=== PATIENT | female | born 1965 | race Caucasian/White ===

== ENCOUNTER 2020-11-09 17:42 | Emergency (ER) | payer OTHER, SELFPAY ==
[2020-11-09] VITALS (12 sets, daily range): BP systolic 128–156; BP diastolic 73–91; PULSE 105–129; RESP 21–28; TEMP 37.2; O2SAT 94–97
[2020-11-09 18:15] LABS: Add Manual Diff / Slide Review NO; Basophils Absolute Auto 100 /uL (0-100); Basophils Percent Auto 0.5 % (0-2); Eosinophils Absolute Auto 300 /uL (0-450); Eosinophils Percent Auto 2.1 % (2-4); Hematocrit 41.2 % (36-46); Hemoglobin 13.7 g/dL (12.0-16.0); Lymphocytes Absolute Auto 1600 /uL (1100-4500); Lymphocytes Percent Auto 11.2 % (25-40); Mean Corpuscular HGB Conc 33.2 % (30-36); Mean Corpuscular Hemoglobin 27.1 PG (26-34); Mean Corpuscular Volume 81.4 fL (80-100); Monocytes Absolute Auto 1000 /uL (0-900); Monocytes Percent Auto 6.9 % (3-14); Neutrophils Absolute Auto 11400 /uL (1500-7000); Neutrophils Percent Auto 79.3 % (50-75); Platelet Count 342 X10^3/uL (150-400); Red Blood Cell Count 5.06 X10^6/uL (4.0-5.2); Red Cell Distribution Width 13.5 % (11.6-14.8); White Blood Cell Count 14.3 X10^3/uL (4.5-11.0)
--- NOTE | 2020-11-09 18:19 | ED_ITS ---
HPI - Abdominal Pain General Chief Complaint: Abdominal Pain Stated Complaint: STOMACH PAINS Time Seen by Provider: 11/09/20 17:55 Source: patient Mode of arrival: Ambulatory Limitations: no limitations History of Present Illness HPI narrative: Patient is a 55-year-old female with history of diabetes hypertension who presents with abdominal pain ongoing for the last 1 week or so. She says she really has not had a bowel movement and feels like she has gas. She tried Gas-X [id number] it did not help. She has been taking Pepto- Bismol and noticed that her stool is black. She vomited twice today and 1 or 2 times last week. She denies feeling nauseated. She says that she has been drinking cranberry juice trying is to have a bowel movement. She did have a small 1. She has no prior abdominal surgeries. No fever or chills. She has no chest pain palpitations although she is noted to be mildly tachycardic disease. MD complaint: abdominal pain Pain Consistency: intermittent Location: diffuse Relieving factors: nothing Exacerbating factors: nothing Related Data Home Medications Medication Instructions Recorded Confirmed Atropine Sulf/Hyoscyamine Sulf 1 tab PO TID #0 03/26/12 (BELLADONNA/PB) Fluoxetine Hydrochloride (PROZAC) 10 mg PO QDAY #0 03/26/12 [METOPROLOL SUCC ER] 25 mg PO QDAY #0 03/26/12 Review of Systems Review of Systems Narrative: GENERAL: Denies chills, fatigue, malaise, fever, sweats, travel HEENT: Denies sinus pain, ear pain, sore throat, difficulty swallowing, neck pain RESPIRATORY: Denies dyspnea, cough, wheezing, hemoptysis, sputum. CARDIOVASCULAR: Denies chest pain, palpitations, orthopnea, edema GASTROINTESTINAL: See HPI : Denies dysuria, frequency, incontinence, hematuria, urinary retention, flank pain. MUSCULOSKELETAL: Denies weakness, joint pain, or bony pain SKIN: No rash, no erythema, no pruritus NEUROLOGIC: Denies weakness, dizziness, headache, numbness, change in speech, confusion PSYCHIATRIC: No concerning psychosocial issues. 12 point review of systems is negative except for those stated above and HPI Patient History Medical History (Updated 11/09/20 @ 22:45 by Virginia Cifuentes DO) Diabetes Social History (Reviewed 11/09/20 @ 18:31 by JAIMEE Corona Smoking Status: Never smoker Smoking Status: Never smoker Exam Initial Vital Signs Initial Vital Signs: Vital Signs Temperature 98.9 F 11/09/20 17:44 Pulse Rate 129 H 11/09/20 17:44 Respiratory Rate 24 11/09/20 17:44 Blood Pressure 156/91 H 11/09/20 17:44 Pulse Oximetry 97 11/09/20 17:44 GENERAL: Alert pleasant 55-year-old female and in no acute distress. HEENT: Head atraumatic,EOMI, pupils reactive, face symmetric, moist mucous membranes CARDIOVASCULAR: Tachycardic regular no murmur RESPIRATORY: Breath sounds equal bilaterally, no wheezes rales or rhonchi. ABDOMEN: Soft, mild right upper quadrant tenderness negative Daily sign mild distention but soft no guarding no rebound : No CVA tenderness EXTREMITIES: Normal range of motion, no clubbing or edema. Neurovascularly intact NEUROLOGICAL: Alert and oriented x4.Normal gait and speech. Cranial nerves II through XII grossly intact. SKIN: Warm, dry, no laceration, no petechiae, no rashes or lesions. Course Orders Ordered: Discontinued Medications Sodium Chloride (Normal Saline 0.9%) 1,000 mls @ 1,000 mls/hr IV BOLUS ONE Stop: 11/09/20 22:26 Last Infusion: 11/09/20 23:18 Dose: 0 mls/hr Documented by: Admin: 11/09/20 22:21 Dose: 1,000 mls/hr Documented by: DEMETRICE Magnesium Citrate (Magnesium Citrate 300 Ml Solution) 300 ml PO NOW ONE Stop: 11/09/20 22:55 Last Admin: 11/09/20 23:36 Dose: 300 ml Documented by: DEMETRICE Vital Signs Vital signs: Vital Signs - 8 hr 11/09/20 23:00 Pulse Rate 105 H Respiratory Rate 21 Blood Pressure 135/73 Pulse Oximetry 96 MDM - Abdominal Pain Lab Data Attestation: I reviewed the patient's lab results. Result diagrams: 11/09/20 18:05 11/09/20 18:05 Labs: Lab Results 11/09/20 11/09/20 11/09/20 Range/Units 18:05 18:05 18:05 WBC 14.3 H (4.5-11.0) X10^3/uL RBC 5.06 (4.0-5.2) X10^6/uL Hgb 13.7 (12.0-16.0) g/dL Hct 41.2 (36-46) % MCV 81.4 (80-100) fL MCH 27.1 (26-34) PG MCHC 33.2 (30-36) % RDW 13.5 (11.6-14.8) % Plt Count 342 (150-400) X10^3/uL Neut % (Auto) 79.3 H (50-75) % Lymph % (Auto) 11.2 L (25-40) % Cache % (Auto) 6.9 (3-14) % Eos % (Auto) 2.1 (2-4) % Baso % (Auto) 0.5 (0-2) % Neut # (Auto) 34020 H (3850-9055) /uL Lymph # (Auto) 1600 (2068-2986) /uL Cache # (Auto) 1000 H (0-900) /uL Eos # (Auto) 300 (0-450) /uL Baso # (Auto) 100 (0-100) /uL PT 11.6 (10.1-12.7) SECONDS INR 1.0 (0.9-1.3) APTT 31 (26.4-36.2) SECONDS Sodium 138 (137-145) mmol/L Potassium 3.6 (3.4-5.1) mmol/L Chloride 97 L (98-107) mmol/L Carbon Dioxide 30 (22-32) mmol/L BUN 13 (7-17) mg/dL Creatinine 0.68 (0.52-1.04) mg/dL Estimated GFR > 60.0 (>60) mL/min BUN/Creatinine Ratio 19.1 (6-22) Glucose 195 H (70-100) mg/dL Calcium 10.1 (8.4-10.2) mg/dL Total Bilirubin 0.5 (0.2-1.3) mg/dL AST 29 (14-36) IU/L ALT 27 (<35) IU/L Alkaline Phosphatase 97 (38-126) U/L Total Creatine Kinase (30-135) U/L CK-MB (CK-2) CK-MB (CK-2) Rel Index Troponin I (0.01-0.034) ng/mL Total Protein 7.2 (6.3-8.2) g/dL Albumin 4.1 (3.5-5.0) g/dL Globulin 3.1 (1.7-4.1) g/dL Albumin/Globulin Ratio 1.3 (1.0-2.8) Lipase (23-300) U/L 05/31/ Range/Units 18:05 WBC (4.5-11.0) X10^3/uL RBC (4.0-5.2) X10^6/uL Hgb (12.0-16.0) g/dL Hct (36-46) % MCV (80-100) fL MCH (26-34) PG MCHC (30-36) % RDW (11.6-14.8) % Plt Count (150-400) X10^3/uL Neut % (Auto) (50-75) % Lymph % (Auto) (25-40) % Cache % (Auto) (3-14) % Eos % (Auto) (2-4) % Baso % (Auto) (0-2) % Neut # (Auto) (4340-4888) /uL Lymph # (Auto) (6225-3350) /uL Cache # (Auto) (0-900) /uL Eos # (Auto) (0-450) /uL Baso # (Auto) (0-100) /uL PT (10.1-12.7) SECONDS INR (0.9-1.3) APTT (26.4-36.2) SECONDS Sodium (137-145) mmol/L Potassium (3.4-5.1) mmol/L Chloride (98-107) mmol/L Carbon Dioxide (22-32) mmol/L BUN (7-17) mg/dL Creatinine (0.52-1.04) mg/dL Estimated GFR (>60) mL/min BUN/Creatinine Ratio (6-22) Glucose (70-100) mg/dL Calcium (8.4-10.2) mg/dL Total Bilirubin (0.2-1.3) mg/dL AST (14-36) IU/L ALT (<35) IU/L Alkaline Phosphatase (38-126) U/L Total Creatine Kinase < 20 L (30-135) U/L CK-MB (CK-2) TNP CK-MB (CK-2) Rel Index TNP Troponin I < 0.012 (0.01-0.034) ng/mL Total Protein (6.3-8.2) g/dL Albumin (3.5-5.0) g/dL Globulin (1.7-4.1) g/dL Albumin/Globulin Ratio (1.0-2.8) Lipase 77 (23-300) U/L Imaging Data CT scan - abdomen/pelvis: Radiologist's Impression: PROCEDURE: CT ABDOMEN PELVIS W CON INDICATIONS: abdominal pain, no bowel movement TECHNIQUE: After the administration of intravenous contrast, 5 mm thick sections acquired from the diaphragm to the symphysis. 5 mm coronal and sagittal reformats were acquired. For radiation dose reduction, the following was used: automated exposure control, adjustment of mA and/or kV according to patient size. COMPARISON: None. FINDINGS: Image quality: Excellent. ABDOMEN: Lung bases: Lung bases are clear. Heart size is normal. Solid organs: Liver is normal in size and enhancement. Gallbladder is within normal limits Biliary system is non dilated. Pancreas enhances normally. Spleen is normal in size and enhancement. No adrenal nodules. Kidneys demonstrate normal size and enhancement, without hydronephrosis. Peritoneum and bowel: There is thickening of the omentum is normal highly suspicious for metastatic disease. Several loops of small bowel abut the omental caking demonstrate circumferential wall thickening and mild dilatation may represent ileus or early bowel obstruction. Small amount of free fluid noted in the pelvis and adjacent to prominent loops of small bowel in the anterior mid pelvis. No free air. Scattered diverticuli noted in the colon without evidence of diverticulitis. Radiodense material n oted throughout the colon. Nodes and vessels: No retroperitoneal or mesenteric adenopathy by size criteria. Aorta and inferior vena cava are normal in size. Miscellaneous: No ventral hernias. PELVIS: Genitourinary: Bladder wall thickness is normal. Miscellaneous: No inguinal hernias or adenopathy. Bones: Centimeter area sclerosis involving the left iliac bone adjacent to the SI joint. No vertebral body compression fractures. IMPRESSION: 1. Soft tissue thickening of the omentum most likely related to metastatic disease. 2. Loops of small bowel adjacent to omental thickening demonstrate mild dilatation and may represent ileus or early small bowel obstruction. 3. Small amount of scattered free fluid. No free air. 4. 1.4 centimeters sclerotic lesion left iliac bone. Recommend whole body nuclear medicine whole-body bone scan to exclude osseous metastatic disease. Dictated by: Yue Armenta MD, PhD on 11/09/2020 at 19:31 Chest x-ray: Radiologist's Impression: PROCEDURE: XR CHEST 1V INDICATIONS: chest pain TECHNIQUE: One view of the chest was acquired. COMPARISON: [facility], , CHEST 2 VIEW, 11/01/2013, 11:25. FINDINGS: Surgical changes and devices: None. Lungs and pleura: Lungs are clear. No pleural effusions or pneumothorax. Mediastinum: Mediastinal contours appear normal. Heart size is normal. Bones and chest wall: No suspicious bony lesions. Overlying soft tissues appear unremarkable. IMPRESSION: No acute cardiopulmonary disease process. Dictated by: Yue Armenta MD, PhD on 11/09/2020 at 21:18 Approved by: Yue Armenta MD, PhD on 11/09/2020 at 21:19 ECG Data Attestation: I personally reviewed and interpreted this ECG as follows: Interpretation: Sinus tachycardia rate 117 p.r. interval 170 QRS [address] changes or T-wave inversions MDM Narrative Medical decision making narrative: Patient is a prior cover oval she has signs of obstruction with nausea and vomiting but no prior history of abdominal surgery. CT does show thickening of omentum was probable metastatic disease along with sclerotic lesions in the iliac bone. Garde also show possible earlier for small bowel obstruction. 2130 Discussed case you surgery , at this time recommends laxative for stool she does appear constipated and outpatient follow-up for oncology workup. Updated patient on symptoms and test results, she does have an appointment with a new PCP in office in about 2 months, I have recommended she call the office tomorrow and tell them of the new EKG findings and to try and get an expedited appointment. Discharge Plan Departure Patient Disposition: Home Clinical Impression: Constipation, Cancer of omentum Instructions: Constipation Activity Restrictions/Additional Instructions: *You have been diagnosed with you do have evidence of some cancer on your CT. Primary source is unknown at this time. You also are found to be quite constipated. *What to do: Increased fluid intake *Continue to take medications as directed Magnesium citrate 1 full bottle when you get home MiraLax once daily in till stool Colace 100 mg twice a day *Follow up with your primary care provider in 2-3 days Call primary care provider 1st thing tomorrow. His you will need an appointment as soon as possible *Return to ER if you should have increasing pain persistent vomiting or any new, worsening or concerning symptoms Prescriptions: No Action Fluoxetine Hydrochloride (PROZAC) 10 mg PO QDAY Qty: 0 RF: 0 Atropine Sulf/Hyoscyamine Sulf (BELLADONNA/PB) 1 tab PO TID Qty: 0 RF: 0 [METOPROLOL SUCC ER] 25 mg PO QDAY Qty: 0 RF: 0 Referrals: Yanci Lott PA-C [Primary Care Provider] - Marlen Gee DO [Non-Staff] - Stand Alone Forms: Work Release Note
[2020-11-09 18:20] LABS: Prothrombin Time 11.6 SECONDS (10.1-12.7)
[2020-11-09 18:23] LABS: PTT Partial Thromboplastin Tim 31 SECONDS (26.4-36.2)
[2020-11-09 18:25] LABS: Alanine Aminotransferase 27 IU/L (<35); Albumin 4.1 g/dL (3.5-5.0); Albumin Globulin Ratio 1.3 (1.0-2.8); Alkaline Phosphatase 97 U/L (38-126); Aspartate Aminotransferase 29 IU/L (14-36); BUN Creatinine Ratio 19.1 (6-22); Bilirubin Total 0.5 mg/dL (0.2-1.3); Blood Urea Nitrogen 13 mg/dL (7-17); Calcium 10.1 mg/dL (8.4-10.2); Carbon Dioxide 30 mmol/L (22-32); Chloride 97 mmol/L (98-107); Estimated Glomerular Filt Rate > 60.0 mL/min (>60); Globulin 3.1 g/dL (1.7-4.1); Glucose 195 mg/dL (70-100); HEMOLYSIS < 15 (0-50); Potassium 3.6 mmol/L (3.4-5.1); Sodium 138 mmol/L (137-145); Total Protein 7.2 g/dL (6.3-8.2)
--- NOTE | 2020-11-09 18:27 | DI.CT.S_ITS ---
PROCEDURE: CT ABDOMEN PELVIS W CON INDICATIONS: abdominal pain, no bowel movement TECHNIQUE: After the administration of intravenous contrast, 5 mm thick sections acquired from the diaphragm to the symphysis. 5 mm coronal and sagittal reformats were acquired. For radiation dose reduction, the following was used: automated exposure control, adjustment of mA and/or kV according to patient size. COMPARISON: None. FINDINGS: Image quality: Excellent. ABDOMEN: Lung bases: Lung bases are clear. Heart size is normal. Solid organs: Liver is normal in size and enhancement. Gallbladder is within normal limits Biliary system is non dilated. Pancreas enhances normally. Spleen is normal in size and enhancement. No adrenal nodules. Kidneys demonstrate normal size and enhancement, without hydronephrosis. Peritoneum and bowel: There is thickening of the omentum is normal highly suspicious for metastatic disease. Several loops of small bowel abut the omental caking demonstrate circumferential wall thickening and mild dilatation may represent ileus or early bowel obstruction. Small amount of free fluid noted in the pelvis and adjacent to prominent loops of small bowel in the anterior mid pelvis. No free air. Scattered diverticuli noted in the colon without evidence of diverticulitis. Radiodense material noted throughout the colon. Nodes and vessels: No retroperitoneal or mesenteric adenopathy by size criteria. Aorta and inferior vena cava are normal in size. Miscellaneous: No ventral hernias. PELVIS: Genitourinary: Bladder wall thickness is normal. Miscellaneous: No inguinal hernias or adenopathy. Bones: Centimeter area sclerosis involving the left iliac bone adjacent to the SI joint. No vertebral body compression fractures. IMPRESSION: 1. Soft tissue thickening of the omentum most likely related to metastatic disease. 2. Loops of small bowel adjacent to omental thickening demonstrate mild dilatation and may represent ileus or early small bowel obstruction. 3. Small amount of scattered free fluid. No free air. 4. 1.4 centimeters sclerotic lesion left iliac bone. Recommend whole body nuclear medicine whole-body bone scan to exclude osseous metastatic disease. Dictated by: Yue Armenta MD, PhD on 11/09/2020 at 19:31 Approved by: Yue Armenta MD, PhD on 11/09/2020 at 19:38
[2020-11-09 18:41] LABS: Creatine Kinase < 20 U/L (30-135); Lipase 77 U/L (23-300)
[2020-11-09 18:54] LABS: Troponin I < 0.012 ng/mL (0.01-0.034)
--- NOTE | 2020-11-09 20:08 | DI.RAD.S_ITS ---
PROCEDURE: XR CHEST 1V INDICATIONS: chest pain TECHNIQUE: One view of the chest was acquired. COMPARISON: [facility], , CHEST 2 VIEW, 11/01/2013, 11:25. FINDINGS: Surgical changes and devices: None. Lungs and pleura: Lungs are clear. No pleural effusions or pneumothorax. Mediastinum: Mediastinal contours appear normal. Heart size is normal. Bones and chest wall: No suspicious bony lesions. Overlying soft tissues appear unremarkable. IMPRESSION: No acute cardiopulmonary disease process. Dictated by: Yue Armenta MD, PhD on 11/09/2020 at 21:18 Approved by: Yue Armenta MD, PhD on 11/09/2020 at 21:19
[2020-11-09] MEDS: SODIUM CHLORIDE 0.9% 1,000 ML 1000 ML IV (22:21)
[2020-11-09] MEDS: MAGNESIUM CITRATE 300 ML SOLUTION PO (23:36)
== END 2020-11-09 23:51 | disposition home or self-care (01) ==
PROVIDERS: Emergency Provider Emergency Medicine; PCP Physician Assistant
DX: K59.00 Constipation, unspecified (principal); R07.9 Chest pain, unspecified; C48.1 Malignant neoplasm of specified parts of peritoneum
CPT/HCPCS: 36415; 71045; 74177; 80053; 82550; 83690; 84484; 85025; 85610; 85730; 93005; 96360; 99284